=== PATIENT | female | born 1990 | race American Indian/Alaskan Native ===

== ENCOUNTER 2017-01-27 02:39 | Emergency (ER) | payer SELFPAY ==
[2017-01-27 03:01] VITALS: BP 154/95
[2017-01-27 03:36] LABS: Basophils % (Auto) 0.4 % (0.0-1.8); Eosinophils % (Auto) 1.2 % (0.0-4.3); Hematocrit 36.6 % (30.3-42.9); Hemoglobin 12.1 gm/dl (10.1-14.3); Mean Corpuscular HGB Conc 33 % (30-34); Mean Corpuscular Hemoglobin 29 pg (28-32); Mean Corpuscular Volume 87 fl (79-97); Platelet Count 250 K/mm3 (140-440); White Blood Count 10.1 K/mm3 (4.5-11.0)
[2017-01-27 03:49] LABS: Alanine Aminotransferase 15 units/L (7-56); Albumin 4.1 g/dL (3.9-5); Alkaline Phosphatase 120 units/L (35-129); Anion Gap 17 mmol/L; Blood Urea Nitrogen 9 mg/dL (7-17); Calcium 9.5 mg/dL (8.4-10.2); Carbon Dioxide 26 mmol/L (22-30); Chloride 102.1 mmol/L (98-107); Glucose 185 mg/dL (65-100); Lipase 19 units/L (13-60); Potassium 3.5 mmol/L (3.6-5.0); Sodium 142 mmol/L (137-145); Total Protein 8.4 g/dL (6.3-8.2)
[2017-01-27 06:32] LABS: Bilirubin,Urine NEG (Negative); Blood,Urine MOD (Negative); Ketones,Urine NEG (Negative); Leukocyte Esterase,Urine MOD (Negative); Mucus,Urine 1+ /HPF; Nitrite,Urine NEG (Negative); Protein,Urine <15 mg/dL mg/dL (Negative); Urobilinogen,Urine < 2.0 mg/dL (<2.0)
--- NOTE | 2017-01-29 10:56 | ED Elopement Review ---
ED Pt Elopement review - Results review Lab results: Laboratory Tests 01/27/17 01/27/17 01/27/17 03:09 03:09 03:09 WBC 10.1 RBC 4.20 Hgb 12.1 Hct 36.6 MCV 87 MCH 29 MCHC 33 RDW 14.0 Plt Count 250 Lymph % (Auto) 32.7 Bailey % (Auto) 4.3 Eos % (Auto) 1.2 Baso % (Auto) 0.4 Lymph # 3.3 Bailey # 0.4 Eos # 0.1 Baso # 0.0 Seg Neutrophils % 61.4 Seg Neutrophils # 6.2 Sodium 142 Potassium 3.5 L Chloride 102.1 Carbon Dioxide 26 Anion Gap 17 BUN 9 Creatinine 0.9 Estimated GFR > 60 BUN/Creatinine Ratio 10.00 Glucose 185 H Calcium 9.5 Total Bilirubin 0.20 AST 13 ALT 15 Alkaline Phosphatase 120 Total Protein 8.4 H Albumin 4.1 Albumin/Globulin Ratio 1.0 Lipase 19 HCG, Qual Negative HCG, Quant Urine Color Urine Turbidity Urine pH Ur Specific [place] Urine Protein Urine Glucose (UA) Urine Ketones Urine Blood Urine Nitrite Urine Bilirubin Urine Urobilinogen Ur Leukocyte Esterase Urine WBC (Auto) Urine RBC (Auto) U Epithel Cells (Auto) Calcium Oxalate Crystal Hyaline Casts Urine Mucus 01/27/17 01/27/17 03:09 05:45 WBC RBC Hgb Hct MCV MCH MCHC RDW Plt Count Lymph % (Auto) Bailey % (Auto) Eos % (Auto) Baso % (Auto) Lymph # Bailey # Eos # Baso # Seg Neutrophils % Seg Neutrophils # Sodium Potassium Chloride Carbon Dioxide Anion Gap BUN Creatinine Estimated GFR BUN/Creatinine Ratio Glucose Calcium Total Bilirubin AST ALT Alkaline Phosphatase Total Protein Albumin Albumin/Globulin Ratio Lipase HCG, Qual HCG, Quant < 2 Urine Color Yellow Urine Turbidity Slightly-cloudy Urine pH 5.0 Ur Specific [place] 1.027 Urine Protein <15 mg/dl Urine Glucose (UA) Neg Urine Ketones Neg Urine Blood Mod Urine Nitrite Neg Urine Bilirubin Neg Urine Urobilinogen < 2.0 Ur Leukocyte Esterase Mod Urine WBC (Auto) 31.0 H Urine RBC (Auto) 8.0 U Epithel Cells (Auto) 14.0 H Calcium Oxalate Crystal 3+ Hyaline Casts 1 Urine Mucus 1+ - Call Back decision Pt Call Back Decision: Pt to F/U with PMD
== END 2017-01-27 03:30 | disposition left against medical advice (07) ==
LOC: ED 02:39
DX: R10.9 Unspecified abdominal pain (principal); Z53.21 Procedure and treatment not carried out due to patient leaving prior to being seen by health care provider
CPT/HCPCS: 36415; 80053; 81001; 83690; 84702; 84703; 85025

== ENCOUNTER 2020-05-12 22:21 | Emergency (ER) | payer SELFPAY | END 2020-05-13 01:30 | disposition left against medical advice (07) | LOC: ED 22:21 | DX: Z04.1 Encounter for examination and observation following transport accident (principal); Z53.21 Procedure and treatment not carried out due to patient leaving prior to being seen by health care provider ==